=== PATIENT | female | born 1990 | race Caucasian/White ===

== ENCOUNTER 2018-12-31 00:26 | Inpatient (IN) ==
[2018-12-31] MEDS ORDERED: LACTATED RINGER'S 1,000 ML IV PRN (00:48)
[2018-12-31] MEDS ORDERED: OXYTOCIN 30 UNITS/500 ML BAG IV PRN ×4 (00:48→08:39)
[2018-12-31 01:22] LABS: Hematocrit (blood only) 31.8 % (37-47); Mean Corpuscular Hemoglobin 31.3 pg (25-34); Mean Corpuscular Volume 90.3 fL (80-100); Mean Platelet Volume 9.4 fL (7.4-10.4); Platelet Count 184 K/uL (130-400); RDW Coefficient of Variation 14.1 % (11.5-14.5); RDW Standard Deviation 46.3 fL (36.4-46.3); Red Blood Count 3.52 M/uL (4.2-5.4); White Blood Count 7.51 K/uL (4.8-10.8)
[2018-12-31 01:23] LABS: Mean Corpuscular Hgb Conc 34.6 g/dL (32-36)
[2018-12-31] MEDS ORDERED: ePHEDrine sulfate 50 MG/ML AMP ONE (01:38)
[2018-12-31] MEDS ORDERED: BUPIVACAINE 0.25% 30 ML VIAL ONE (01:38)
[2018-12-31] MEDS ORDERED: fentaNYL 2MCG/ML ROPIV 1.25MG/ML 100 ML BAG EPI ONE (01:39)
[2018-12-31] MEDS ORDERED: fentaNYL citrate 100 MCG/2 ML VIAL ONE (01:39)
[2018-12-31] MEDS: LACTATED RINGER'S 1,000 ML IV PRN ×2 (02:04→03:01)
[2018-12-31] MEDS ORDERED: DiphenhydrAMINE HCL 50 MG/ML VIAL IV PRN (02:25)
[2018-12-31] MEDS ORDERED: NALOXONE HCL 1 MG in SODIUM CHLORIDE 0.9% 1000ML 1,000 ML IV PRN (02:25)
[2018-12-31] MEDS ORDERED: NALBUPHINE HCL INJ 10 MG/ML AMP IV PRN (02:25)
[2018-12-31] MEDS ORDERED: NALOXONE HCL 0.4 MG/1 ML VIAL/CARP IV PRN (02:25)
[2018-12-31] MEDS ORDERED: ONDANSETRON INJ 2 MG/ML 2 ML VIAL IV PRN (02:25)
[2018-12-31] MEDS ORDERED: fentaNYL 2MCG/ML ROPIV 1.25MG/ML 100 ML BAG EPI PRN (02:25)
[2018-12-31] MEDS ORDERED: ePHEDrine sulfate 50 MG/ML AMP IV PRN (02:25)
--- NOTE | 2018-12-31 02:27 | Anesthesiology Consultation ---
Date of Service December 31, 2018 Assessment & Plan (1) Encounter for pre-operative examination: Chart Review Chart Review: Patient NOT seen in Pre Admission Testing and Acceptable Risk for Labor Epidural Consults Requested none History Height/Weight Height: 5 ft 1 in Weight: 68.492 kg Allergies Allergy/AdvReac Type Severity Reaction Status Date / Time No Known Drug Allergies Allergy Verified 12/23/18 13:54 Medications Home Medications Medication Instructions Recorded Confirmed Last Taken ascorbic acid (vitamin C) 200 cap PO DAILY 11/06/18 12/31/18 12/30/18 21:00 calcium carbonate 200 tab PO DAILY 11/06/18 12/31/18 12/30/18 21:00 vit no.[id number] 1 tab PO DAILY 12/31/18 12/31/18 12/30/18 21:00 [ Vitamin] Active Medications Generic Name Dose Route Start Last Admin Trade Name Freq PRN Reason Stop Dose Admin Lactated Ringer's 1,000 mls @ 125 mls/hr 12/31/18 00:55 12/31/18 02:04 Lr IV 01/02/19 00:54 999 mls/hr .Q8H PRN Administration L&D Protocol Protocol Past Medical History Medical History Varicella Exercise / Class Metabolic Activity II 4-5 Yardwork/Stairs/Walk up hill Past Family History Family History Sister Ovarian cyst Past Surgical History Surgical History S/P wisdom tooth extraction Past Anesthesia History No Hx of Anesthesia Complications and No Family Hx of Anesthesia Complications History of PONV No Hx of PONV and No Hx of Motion Sickness Social History Smoking Status: Never smoker Do You Dip or Chew Tobacco: No Hx Alcohol Use: No Hx Substance Use: No Physical Exam Vital Signs Last Vital Signs Temp 36.9 C 12/31/18 00:35 Pulse 83 12/31/18 02:23 Resp 18 12/31/18 00:35 BP 131/77 12/31/18 00:35 Pulse Ox 99 12/31/18 02:23 Testing Laboratory Results 12/31/18 01:10
--- NOTE | 2018-12-31 07:14 | Labor Progress Brief Note ---
Date of Service December 31, 2018 Subjective Reason For Note: Routine Evaluation Assessment & Plan (1) : 28 yo , GBS negative,A-, laboring - VS: WNL - SVE: 10, 100%, and +3 - baseline rate 140 - no late decelerations present, and no variable decelerations - Category 1 tracing, reassuring. - Continue management. Physical Exam Physical Exam: - VS WNL - 10 cm, 100%, +3 - baseline rate 140 - no late decelerations present and no variable decelerations - Category 1 strip Results & Data Vital Signs (Past 12 Hours) Vital Signs Temp Pulse Resp BP Pulse Ox 12/31/18 07:08 80 100 12/31/18 07:03 82 100 12/31/18 06:58 88 98 12/31/18 06:55 78 103/56 L 12/31/18 06:53 70 99 12/31/18 06:48 76 99 12/31/18 06:43 70 98 12/31/18 06:40 83 113/55 L 12/31/18 06:38 73 97 12/31/18 06:33 76 99 12/31/18 06:28 83 100 12/31/18 06:26 67 20 110/64 12/31/18 06:23 71 100 12/31/18 06:18 69 100 12/31/18 06:13 64 98 12/31/18 06:11 69 107/52 L 12/31/18 06:08 69 96 12/31/18 06:03 65 97 12/31/18 05:58 67 96 12/31/18 05:55 67 16 104/57 L 12/31/18 05:53 67 96 12/31/18 05:48 68 96 12/31/18 05:43 65 96 12/31/18 05:42 68 108/56 L 12/31/18 05:38 68 97 12/31/18 05:33 68 97 12/31/18 05:30 18 12/31/18 05:28 64 98 12/31/18 05:26 65 112/61 12/31/18 05:23 66 97 12/31/18 05:18 71 99 12/31/18 05:13 73 98 12/31/18 05:11 78 117/56 L 12/31/18 05:08 75 98 12/31/18 05:03 71 100 12/31/18 05:00 36.8 C 18 12/31/18 04:58 80 98 12/31/18 04:55 71 111/59 L 12/31/18 04:53 73 98 12/31/18 04:48 76 98 12/31/18 04:43 68 99 12/31/18 04:42 72 118/54 L 12/31/18 04:38 77 99 12/31/18 04:33 79 100 12/31/18 04:30 18 12/31/18 04:28 72 97 12/31/18 04:25 68 110/55 L 12/31/18 04:23 70 96 12/31/18 04:18 72 96 12/31/18 04:13 72 95 12/31/18 04:11 67 113/56 L 12/31/18 04:08 70 96 12/31/18 04:03 77 96 12/31/18 04:00 16 12/31/18 03:58 89 97 12/31/18 03:55 74 111/55 L 12/31/18 03:53 69 97 12/31/18 03:48 73 97 12/31/18 03:43 79 97 12/31/18 03:42 67 113/59 L 12/31/18 03:38 65 98 12/31/18 03:33 85 99 12/31/18 03:30 18 12/31/18 03:28 68 97 12/31/18 03:25 76 109/58 L 12/31/18 03:23 69 98 12/31/18 03:18 83 99 12/31/18 03:13 72 98 12/31/18 03:11 67 115/59 L 12/31/18 03:08 78 99 12/31/18 03:03 76 99 12/31/18 03:00 36.9 C 20 12/31/18 02:58 73 100 12/31/18 02:54 79 108/53 L 12/31/18 02:53 78 98 12/31/18 02:51 78 114/58 L 12/31/18 02:48 81 118/56 L 99 12/31/18 02:45 75 123/58 L 12/31/18 02:43 76 99 12/31/18 02:41 73 120/70 12/31/18 02:38 80 100 12/31/18 02:33 78 100 12/31/18 02:28 67 99 12/31/18 02:26 71 130/81 12/31/18 02:23 83 99 12/31/18 00:35 36.9 C 82 18 131/77 12/31/18 00:34 82 131/77 Resident Activity Tracking Resident Involvement: Resident Care Provided Care Provided: Adult Hospital Medicine
[2018-12-31] MEDS ORDERED: bisacodyL 10 MG SUPP PR PRN (08:39)
[2018-12-31] MEDS ORDERED: DIPHTHERIA/TETANUS/PERTUSSIS 0.5 ML SYR/VIAL IM ONE (08:39)
[2018-12-31] MEDS ORDERED: BENZOCAINE 20% AER SPR 82.5 GM CAN EXT PRN (08:39)
[2018-12-31] MEDS ORDERED: IBUPROFEN 600 MG TAB PO PRN (08:39)
[2018-12-31] MEDS ORDERED: SUPERCREAM 0.870% 15 GM JAR EXT PRN (08:39)
[2018-12-31] MEDS ORDERED: HYDROCORTISONE ACETATE 25 MG SUPP PR PRN (08:39)
[2018-12-31] MEDS ORDERED: MEASLES, MUMPS & RUBELLA VIRUS VIAL SQ ONE (08:39)
[2018-12-31] MEDS ORDERED: ACETAMINOPHEN 325 MG TAB PO PRN (08:39)
--- NOTE | 2018-12-31 08:40 | History & Physical Report ---
Date of Service December 31, 2018 Assessment & Plan (1) Supervision of normal first : 28yo at 38.4 weeks GA. Labor/ SROM 1. Fetus: Cat 1 2. Labor: active labor. will augment if indicated 3. Vitals: WNL 4. GBS negative 5. Rubella nonimmune: MMR PP History of Present Illness Primary Care Provider: [facility] PCP 28yo at 38.4 weeks GA. Patient present for SROM and active labor. Denies VB. Good FM. complicated by late to care, Rh negative, and rubella nonimmune. GBS negative. Allergies Allergy/AdvReac Type Severity Reaction Status Date / Time No Known Drug Allergies Allergy Verified 12/23/18 13:54 Home Medications Home Medications Medication Instructions Recorded Confirmed Type ascorbic acid (vitamin C) 200 cap PO DAILY 11/06/18 12/31/18 History calcium carbonate 200 tab PO DAILY 11/06/18 12/31/18 History vit no.[id number] 1 tab PO DAILY 12/31/18 12/31/18 History [ Vitamin] Patient History Medical History Varicella Surgical History S/P wisdom tooth extraction Family History Sister Ovarian cyst Social History Preferred Language: Telugu Communication Ability: Effective Communication Ability Comment: Pt wears glasses but not with her. Sheet Tailer Required: No Beliefs That Will Affect Care: None marital status: marital status details: Andrez Hamilton (24) [phone] Current Living Situation: Spouse Current Living Situation Comment: no pets in the home current occupational status: unemployed Other Information That Helps Us Care for You: No Feels Safe at Home: Yes Safety Concerns: Feels Safe At This Time Smoking Status: Never smoker Do You Dip or Chew Tobacco: No ; Second Hand Exposure: No ; Hx Alcohol Use: No Hx Substance Use: No Childhood Exposure to Second-Hand Smoke: No Physical Exam Constitutional: WD/WN, vitals as above Gastrointestinal (Abdomen): normal bowel sounds, soft, nontender, no hepatosplenomegaly Genitourinary: OB Exam Abdomen: + vertex Manual OB Exam: + cervical dilation 6 cm, + cervical effacement 90%, + station -1 and + amniotic fluid meconium OB Exam Monitor Tracing: + external FHT monitor used, + external uterine monitor used, + category I and + normal FHT variability; no late decelerations present and no variable decelerations Results & Data Vital Signs (Past 12 Hours) Vital Signs Pulse BP 12/31/18 00:34 82 131/77
--- NOTE | 2018-12-31 09:18 | Delivery Summary ---
DATE OF OPERATION: 12/31/2018 PROCEDURE: Normal spontaneous vaginal delivery with manual extraction of placenta and second-degree laceration repair. SURGEON: Alfonso Ray MD PREOPERATIVE DIAGNOSES: 1. Single intrauterine at 38+ weeks gestational age. 2. Active labor. 3. Spontaneous rupture of membranes. 4. Late care. 5. Rubella nonimmune. 6. Rh negative. 7. Meconium stained fluid. POSTOPERATIVE DIAGNOSES: 1. Single intrauterine at 38+ weeks gestational age. 2. Active labor. 3. Spontaneous rupture of membranes. 4. Late care. 5. Rubella nonimmune. 6. Rh negative. 7. Meconium stained fluid. 8. Status post delivery. ESTIMATED BLOOD LOSS: 400 mL. DRAINS: Hernandez with 600 mL after delivery of placenta. FLUIDS: Continuous lactated ringer. COMPLICATIONS: None. INDICATIONS: Ms. Hamilton is a 28-year-old G1, P0, admitted at 38 weeks 4 days gestational age in active labor with spontaneous rupture of membranes. The patient progressed in labor without further augmentation, received an epidural for anesthesia, progressed to complete +3 station, at which time she felt the urge to push. DESCRIPTION OF PROCEDURE: The patient progressed to 10 cm dilated, 100% effaced, +3 station, pushed over intact perineum with epidural anesthesia and delivered a viable female with weight pending and Apgars of 8 and 9 at 1 and 5 minutes respectively. Head of delivered in LANCE position, restituted to right transverse. No nuchal cord was noted. Body and shoulders quickly followed. was noted to be vigorous soon after delivery and a 1-minute delayed cord clamping was initiated. The cord was then double clamped and cut and remained on maternal abdomen. Cord blood was obtained. Attention was then turned to deliver the placenta which resulted in a cord avulsion with manual extraction. The membranes appeared to be complete with 3-vessel cord. On inspection of perineum, vagina, and cervix, there was noted to be second degree perineal laceration which was repaired with 3-0 Vicryl on a continuous running stitch. Needle, sponge and instrument counts were correct at the completion of the case with mother and were stable in the immediate post-delivery. I attest to the content of the Intraoperative Record and any orders documented therein. Any exception s are noted below.
--- NOTE | 2018-12-31 09:26 | Anesthesia Procedure Note ---
Date of Service December 31, 2018 Anesthesia Post Epidural Note Vital Signs Vital Signs: Temp Pulse Resp BP Pulse Ox 36.8 C 75 18 117/59 L 96 12/31/18 07:00 12/31/18 09:15 12/31/18 07:00 12/31/18 09:15 12/31/18 08:04 Pain Intensity Bilateral Abdomen: Pain Intensity: 0 Notes Mental Status: alert / awake / arousable Nausea / Vomiting: adequately controlled Pain: adequately controlled Airway Patency, RR, SpO2: stable & adequate BP & HR: stable & adequate Hydration State: stable & adequate Neuraxial Anesthesia: was administered and sensory block is resolving Anesthetic Complications: no major complications apparent Epidural: Removed without complications and With tip intact
[2018-12-31] MEDS: DOCUSATE SODIUM 100 MG CAP PO SCH (20:39)
--- NOTE | 2019-01-01 06:07 | Obstetrical Progress Note ---
Date of Service January 01, 2019 Assessment & Plan (1) : 28 yo s/p VD @ 38w4d -PPD#1 - GBS negative, Blood Type A- - Feels well today. Eating well, voiding well, ambulating well. - Pain well controlled. - Routine post care - After discharge will have [address] Ray. Supervising Physician Co-Signing Physician Notes Resident Physician Supervision Note: I was present with Dr. Hutchison during the history and exam. I discussed the case with the resident and agree with the findings and plan as documented in the note. Any exceptions or clarifications are listed here: PPD#1 doing well. Desires discharge. Discussed DC instructions. Documented By: Lisa Brice, DO Subjective Doing well, states her pain is well controlled. Bleeding is less than a heavy period. She asked if she could be discharged today since she is self pay. Review of Systems Review of Systems: Denies fever, chills, sweats Denies shortness of breath, difficulty breathing, chest pain, palpitations, chest pressure. Denies breast pain. Denies dysuria. Denies headache. Physical Exam Physical Exam: General: Alert, oriented. No acute distress. Cardiac: Regular rate and rhythm, no murmurs/rubs/gallops. Respiratory: Clear to auscultation anterior and posteriorly, no wheezes/rales/rhonchi. No increased work of breathing. Symmetrical chest rise. No respiratory distress. Abdomen: Soft, nontender, nondistended. Bowel sounds present. Uterus: Uterine fundus firm, palpable at the umbilicus. Lower Extremities: No lower extremity edema or swelling. No deep calf pain. Darshan's negative bilaterally. Results & Data Vital Signs (Past 12 Hours) Vital Signs Temp Pulse Resp BP 01/01/19 04:10 77 18 112/68 12/31/18 23:40 37.2 C 89 18 121/73 12/31/18 20:30 36.7 C 82 20 122/69 PG Care Time/CCT Total # of Minutes Spent Total Time Spent with Patient: Total time spent is greater than 50% in coordination of care (as documented) at patient's floor/unit and/or counseling patient: Resident Activity Tracking Resident Involvement: Resident Care Provided Care Provided: Adult [facility] Medicine
[2019-01-01 06:22] LABS: Hematocrit (blood only) 33.4 % (37-47); Hemoglobin 11.4 g/dL (12.0-16.0); Mean Corpuscular Hemoglobin 31.3 pg (25-34); Mean Corpuscular Hgb Conc 34.1 g/dL (32-36); Mean Corpuscular Volume 91.8 fL (80-100); Mean Platelet Volume 9.5 fL (7.4-10.4); Platelet Count 189 K/uL (130-400); RDW Coefficient of Variation 14.4 % (11.5-14.5); RDW Standard Deviation 48.9 fL (36.4-46.3); Red Blood Count 3.64 M/uL (4.2-5.4); White Blood Count 10.88 K/uL (4.8-10.8)
[2019-01-01] MEDS ORDERED: PRENATAL VITAMIN 1 TAB PO SCH (08:00)
[2019-01-01] MEDS: DOCUSATE SODIUM 100 MG CAP PO SCH (08:45)
[2019-01-01] MEDS ORDERED: bisacodyL 5 MG TABEC PO SCH (20:00)
== END 2019-01-01 12:02 | disposition home or self-care (01) | DRG 807 ==
LOC: OPB 00:26 → 4S1 00:31 → 4S2 11:02

== ENCOUNTER 2022-06-17 18:19 | Inpatient (IN) ==
[2022-06-17] MEDS ORDERED: OXYTOCIN 30 UNITS/500 ML BAG IV PRN ×2 (19:14)
[2022-06-17] MEDS ORDERED: PENICILLIN G POTASSIUM 6 MU in DEXTROSE 5% 250 ML IV STA (19:14)
[2022-06-17] MEDS ORDERED: LIDOCAINE 1% LOCAL 20 ML VIAL INFIL PRN (19:14)
--- NOTE | 2022-06-17 19:19 | History & Physical Report ---
Date of Service June 17, 2022 Assessment & Plan (1) Carrier of group B Streptococcus: Plan: PCN (2) PROM (premature rupture of membranes): Plan: Pitocin augmentation recommended and accepted (3) Need for MMR vaccine: Plan: Will offer History of Present Illness Primary Care Provider: NO PCP 32yo @ 36w3d with ROM at home this evening for clear fluid, followed by onset of contractions that are mild and Q8min currently. No VB, good FM. Preg c/b GBS+ and RH neg. Prior in 2019 Allergies Allergy/AdvReac Type Severity Reaction Status Date / Time No Known Drug Allergies Allergy Verified 06/12/22 14:05 Home Medications Medication Instructions Recorded Confirmed Type calcium 100 mg capsule mg PO 06/17/22 History ferrous sulfate 325 mg (65 mg mg 06/17/22 History iron) tablet (Iron (ferrous sulfate)) omega-3 fatty acids PO 06/17/22 History vitamin B12 0.5 mg-folic acid 1 mg 1 tab PO DAILY 06/17/22 06/17/22 History tablet Patient History Medical History (Updated 06/17/22 @ 19:18 by Esmer Overton MD) Varicella Surgical History S/P wisdom tooth extraction Family History Sister Ovarian cyst Social History (Updated 03/07/22 @ 15:39 by Annabelle Woods) Smoking Status: Never smoker Second Hand Exposure: No; Hx Alcohol Use: No Hx Substance Use: No Preferred Language: Estonian Communication Ability: Effective Communication Ability Comment: Pt wears glasses but not with her. Notcher Required: No Beliefs That Will Affect Care: None marital status: marital status details: Andrez Hamilton (27) [phone] Current Living Situation: Spouse Current Living Situation Comment: lives with spouse, and daughter current occupational status: employed current occupation: Cleaning job Feels Safe at Home: Yes Childhood Exposure to Second-Hand Smoke: No Assistive Devices: None Physical Exam Genitourinary: Copious clear fluid, grossly ruptured. FHT Cat 1 [place] Q8-9 Cvx 3/-1 Vtx presentation Results & Data Vital Signs (Past 12 Hours) Vital Signs Pulse BP 06/17/22 18:35 85 118/60 Coding Level of Care Code None Diagnoses Carrier of group B Streptococcus Z22.330 PROM (premature rupture of membranes) O42.90 Need for MMR vaccine Z23
--- NOTE | 2022-06-17 19:22 | Anesthesiology Consultation ---
Date of Service June 17, 2022 Assessment & Plan Chart Review Chart Review: Patient NOT seen in Pre Admission Testing and Acceptable Risk for Labor Epidural Consults Requested none History Allergies Allergy/AdvReac Type Severity Reaction Status Date / Time No Known Drug Allergies Allergy Verified 06/12/22 14:05 Medications Home Medications Medication Instructions Recorded Confirmed Last Taken calcium 100 mg capsule mg PO 06/17/22 06/17/22 ferrous sulfate 325 mg (65 mg mg 06/17/22 06/17/22 iron) tablet (Iron (ferrous sulfate)) omega-3 fatty acids PO 06/17/22 06/17/22 vitamin B12 0.5 mg-folic acid 1 mg 1 tab PO DAILY 06/17/22 06/17/22 06/17/22 tablet Past Medical History Medical History Varicella Past Family History Family History Sister Ovarian cyst Past Surgical History Surgical History S/P wisdom tooth extraction Social History Smoking Status: Never smoker Hx Alcohol Use: No Hx Substance Use: No Physical Exam Vital Signs Last Vital Signs Pulse 85 06/17/22 18:35 BP 118/60 06/17/22 18:35
[2022-06-17 19:45] LABS: Hematocrit (blood only) 31.8 % (37.0-47.0); Hemoglobin 10.9 g/dl (12.0-16.0); Mean Corpuscular Hemoglobin 29.5 pg (25.0-34.0); Mean Corpuscular Hgb Conc 34.3 g/dL (32.0-36.0); Mean Corpuscular Volume 86.2 fL (80.0-100.0); Mean Platelet Volume 9.1 fL (9.4-12.4); Platelet Count 250 K/uL (130-400); RDW Coefficient of Variation 13.2 % (11.5-14.5); RDW Standard Deviation 41.2 fL (36.4-46.3); Red Blood Count 3.69 M/uL (4.20-5.40); White Blood Count 10.55 K/ul (4.8-10.8)
[2022-06-17] MEDS: LACTATED RINGER'S 1,000 ML IV PRN ×2 (20:08→21:50)
[2022-06-17] MEDS ORDERED: ePHEDrine sulfate 50 MG/ML AMP ONE (21:03)
[2022-06-17] MEDS ORDERED: LIDOCAINE 2%/EPINEPHRINE 1:200,000 20 ML PF ONE (21:04)
[2022-06-17] MEDS ORDERED: SODIUM CHLORIDE 0.9% PF INJ 10 ML VIAL ONE (21:04)
[2022-06-17] MEDS ORDERED: BUPIVACAINE 0.25% PF 30 ML VIAL ONE (21:04)
[2022-06-17] MEDS ORDERED: fentaNYL 2MCG/ML ROPIVACAINE 1.25MG/ML 100 ML BAG EPI ONE (21:04)
[2022-06-17] MEDS ORDERED: fentaNYL citrate PF 100 MCG/2 ML VIAL ONE (21:04)
[2022-06-17] MEDS ORDERED: diphenhydrAMINE 50 MG/ML VIAL IV PRN (21:34)
[2022-06-17] MEDS ORDERED: NALOXONE HCL 1 MG in SODIUM CHLORIDE 0.9% 1000ML 1,000 ML IV PRN (21:34)
[2022-06-17] MEDS ORDERED: NALOXONE HCL 0.4 MG/1 ML VIAL/CARP IV PRN (21:34)
[2022-06-17] MEDS ORDERED: ePHEDrine sulfate 50 MG/ML AMP IV PRN (21:34)
[2022-06-17] MEDS ORDERED: fentaNYL 2MCG/ML ROPIVACAINE 1.25MG/ML 100 ML BAG EPI PRN (21:34)
[2022-06-17] MEDS ORDERED: NALBUPHINE HCL INJ 10 MG/ML AMP IV PRN (21:34)
[2022-06-17] MEDS ORDERED: PENICILLIN G POTASSIUM 3 MU in DEXTROSE 5% 100 ML IV PRN (22:14)
--- NOTE | 2022-06-17 22:39 | Delivery Summary ---
Vaginal Delivery Summary Date of Service June 17, 2022 Vaginal Delivery Summary DIAGNOSES: 1. [place]ley intrauterine at 36w3d gestation. 2. PROM and Augmentation of Labor. 3. Group B Streptococcus Pos, treated with PCN. PROCEDURE: Spontaneous vaginal delivery without laceration. SURGEON: Esmer Overton MD. ASBESTOS REMOVAL WORKER: None. ESTIMATED BLOOD LOSS: 250 mL. COMPLICATIONS: None. PLACENTA: Spontaneous and intact with a 3-vessel cord. DISPOSITION: Stable to labor and delivery. DESCRIPTION: The patient pushed well and brought the head to in DOA position. The infant's head was allowed to deliver with contraction force and no further active pushing, with the perineum protected during this time. There was no nuchal cord. The left shoulder was anterior. The shoulders and body delivered without any difficulty, and the infant was placed on the maternal abdomen. It was vigorous and moving all extremities, and making respiratory efforts. The cord was doubly clamped by the MD and then cut. The placenta delivered spontaneously and was noted to be intact and with a 3VC. The cervix, vagina and perineum were examined and were found to be without defect requiring repair. The fundus was firm and lochia minimal immediately after delivery. [facility] Vaginal Delivery Charge Vaginal Delivery Codes: 23455 global code for the antepartum, delivery, and post-
[2022-06-18] MEDS ORDERED: oxyCODONE/ACETAMINOPHEN 5mg/325mg TAB PO PRN (00:28)
[2022-06-18] MEDS ORDERED: DIPHTHERIA/TETANUS/PERTUSSIS 0.5mL SYR/VIAL (Age 7+yrs) IM ONE (00:28)
[2022-06-18] MEDS ORDERED: HYDROCORTISONE ACETATE 25 MG SUPP PR PRN (00:28)
[2022-06-18] MEDS ORDERED: BENZOCAINE 20% AER SPR 82.5 GM CAN EXT PRN (00:28)
[2022-06-18] MEDS ORDERED: ACETAMINOPHEN 325 MG TAB PO PRN (00:28)
[2022-06-18] MEDS ORDERED: IBUPROFEN 600 MG TAB PO PRN (00:28)
--- NOTE | 2022-06-18 03:49 | Anesthesia Procedure Note ---
Date of Service June 18, 2022 Anesthesia Post Epidural Note Vital Signs Vital Signs: Temp Pulse Resp BP Pulse Ox O2 Del Method 98.4 F 90 18 120/68 98 Room Air 06/18/22 00:57 06/18/22 00:57 06/18/22 00:57 06/18/22 00:57 06/18/22 00:57 06/18/22 01:25 Pain Intensity Lower Back: Pain Intensity: 3 Notes Mental Status: alert / awake / arousable and participated in evaluation Nausea / Vomiting: adequately controlled Pain: adequately controlled Airway Patency, RR, SpO2: stable & adequate BP & HR: stable & adequate Hydration State: stable & adequate Neuraxial Anesthesia: was administered and sensory block is resolving Anesthetic Complications: no major complications apparent and Pt Satisfied with anesthetic care Epidural: Removed without complications and With tip intact
--- NOTE | 2022-06-18 05:31 | Obstetrical Progress Note ---
Date of Service <Lacey Carlito Saunders DO - Last Filed: 06/18/22 06:07> June 18, 2022 Assessment & Plan <Lacey SNathanael Saunders DO - Last Filed: 06/18/22 06:07> (1) Status post vaginal delivery: Feels well today. Eating well, voiding well, ambulating well. - Routine care -- OOB, ambulation, diet progression as tolerated - After discharge will have 6 week post f/u - RH Negative; [place] candidate (2) Need for MMR vaccine: - Rubella Non-Immune; offer MMR <Esmer Overton MD - Last Filed: 06/18/22 06:51> (1) Status post vaginal delivery: (2) Need for MMR vaccine: Subjective <Lacey S. DO Chip - Last Filed: 06/18/22 06:07> Demond is a 32 y/o female who is now PPD # 1 following vaginal delivery at 36 3/7 weeks. Reports feeling well overall this morning. Mild abdominal cramping, pain well managed on analgesics. Voiding. Tolerating meals overnight and able to ambulate some. Is passing gas, no bowel movements. Some persistent lochia with some improvement this morning. Breast feeding. Review of Systems Denies fever, chills, sweats Denies shortness of breath, difficulty breathing, chest pain, palpitations, chest pressure. Denies breast pain. Denies dysuria. Denies headache or changes in vision. Physical Exam <Lacey BetinaNathanael Saunders DO - Last Filed: 06/18/22 06:07> General: Alert, oriented. No acute distress. Cardiac: Regular rate and rhythm, no murmurs/rubs/gallops. Respiratory: Clear to auscultation bilaterally a/p, no wheezes/rales/rhonchi. No increased work of breathing. Symmetrical chest rise. No respiratory distress. Abdomen: Soft, nontender, nondistended. Uterus: Uterine fundus firm, palpable 1 cm below umbilicus. Lower Extremities: No lower extremity edema or swelling. No deep calf pain. Results & Data <Lacey Saunders DO - Last Filed: 06/18/22 06:07> Vital Signs (Past 12 Hours) Vital Signs Temp Pulse Pulse Resp BP BP Pulse Ox 06/18/22 04:30 36.7 C 82 18 116/77 99 06/18/22 01:25 06/18/22 00:57 36.9 C 90 18 120/68 98 06/17/22 19:31 36.8 C 18 06/18/22 00:29 83 118/60 06/18/22 00:14 92 H 117/55 L 06/17/22 23:59 88 06/17/22 23:59 122/58 L 06/17/22 23:43 85 06/17/22 23:43 120/56 L 06/17/22 23:29 83 06/17/22 23:29 123/57 L 06/17/22 23:13 86 06/17/22 23:13 128/61 06/17/22 22:59 89 06/17/22 22:59 127/64 06/17/22 22:43 87 06/17/22 22:43 128/57 L 06/17/22 22:40 98 06/17/22 22:40 90 06/17/22 22:35 100 06/17/22 22:35 87 06/17/22 22:32 144 H 06/17/22 22:32 90/50 L 06/17/22 22:30 99 06/17/22 22:30 86 06/17/22 22:29 87 06/17/22 22:29 137/56 L 06/17/22 22:25 100 06/17/22 22:25 97 H 06/17/22 22:26 93 H 06/17/22 22:26 95/56 L 06/17/22 22:23 83 06/17/22 22:23 117/57 L 06/17/22 22:20 100 06/17/22 22:20 89 06/17/22 22:19 88 06/17/22 22:19 111/58 L 06/17/22 22:16 83 06/17/22 22:16 109/60 06/17/22 22:15 98 06/17/22 22:15 72 06/17/22 22:14 83 06/17/22 22:14 114/75 06/17/22 22:10 98 06/17/22 22:10 81 06/17/22 22:11 78 06/17/22 22:11 97/55 L 06/17/22 22:07 74 06/17/22 22:07 120/56 L 06/17/22 22:05 97 06/17/22 22:05 71 06/17/22 22:04 77 06/17/22 22:04 113/56 L 06/17/22 22:00 99 06/17/22 22:00 76 06/17/22 21:55 98 06/17/22 21:55 90 06/17/22 21:42 99 06/17/22 21:42 89 06/17/22 21:37 100 06/17/22 21:37 83 06/17/22 21:32 100 06/17/22 21:32 80 06/17/22 21:27 98 06/17/22 21:27 85 06/17/22 21:22 97 06/17/22 21:22 83 06/17/22 21:21 79 06/17/22 21:21 123/69 06/17/22 20:30 18 06/17/22 20:30 36.6 C 18 06/17/22 21:17 100 06/17/22 21:17 76 06/17/22 21:12 98 06/17/22 21:12 87 06/17/22 21:07 99 06/17/22 21:07 79 06/17/22 21:02 99 06/17/22 21:02 84 06/17/22 20:57 98 06/17/22 20:57 82 06/17/22 20:20 86 06/17/22 20:20 115/60 06/17/22 19:32 76 06/17/22 19:32 114/66 06/17/22 18:35 85 118/60 O2 Del Method 06/18/22 04:30 Room Air 06/18/22 01:25 Room Air 06/18/22 00:57 Room Air 06/17/22 19:31 06/18/22 00:29 06/18/22 00:14 06/17/22 23:59 06/17/22 23:59 06/17/22 23:43 06/17/22 23:43 06/17/22 23:29 06/17/22 23:29 06/17/22 23:13 06/17/22 23:13 06/17/22 22:59 06/17/22 22:59 06/17/22 22:43 06/17/22 22:43 06/17/22 22:40 06/17/22 22:40 06/17/22 22:35 06/17/22 22:35 06/17/22 22:32 06/17/22 22:32 06/17/22 22:30 06/17/22 22:30 06/17/22 22:29 06/17/22 22:29 06/17/22 22:25 06/17/22 22:25 06/17/22 22:26 06/17/22 22:26 06/17/22 22:23 06/17/22 22:23 06/17/22 22:20 06/17/22 22:20 06/17/22 22:19 06/17/22 22:19 06/17/22 22:16 06/17/22 22:16 06/17/22 22:15 06/17/22 22:15 06/17/22 22:14 06/17/22 22:14 06/17/22 22:10 06/17/22 22:10 06/17/22 22:11 06/17/22 22:11 06/17/22 22:07 06/17/22 22:07 06/17/22 22:05 06/17/22 22:05 06/17/22 22:04 06/17/22 22:04 06/17/22 22:00 06/17/22 22:00 06/17/22 21:55 06/17/22 21:55 06/17/22 21:42 06/17/22 21:42 06/17/22 21:37 06/17/22 21:37 06/17/22 21:32 06/17/22 21:32 06/17/22 21:27 06/17/22 21:27 06/17/22 21:22 06/17/22 21:22 06/17/22 21:21 06/17/22 21:21 06/17/22 20:30 06/17/22 20:30 06/17/22 21:17 06/17/22 21:17 06/17/22 21:12 06/17/22 21:12 06/17/22 21:07 06/17/22 21:07 06/17/22 21:02 06/17/22 21:02 06/17/22 20:57 06/17/22 20:57 06/17/22 20:20 06/17/22 20:20 06/17/22 19:32 06/17/22 19:32 06/17/22 18:35 <Esmer Overton MD - Last Filed: 06/18/22 06:51> Co-Signing Physician Notes Resident Physician Supervision Note: I interviewed and examined the patient. Discussed with Dr. Saunders and agree with findings and plan as documented in the note. Any exceptions or clarifications are listed here: [ ] Documented By: Esmer Overton MD, FACOG Resident Activity Tracking <Lacey Saunders DO - Last Filed: 06/18/22 06:07> Resident Involvement: Resident Care Provided Care Provided: OB Delivery (Post )
[2022-06-18 06:23] LABS: Hematocrit (blood only) 31.2 % (37.0-47.0); Hemoglobin 10.5 g/dl (12.0-16.0); Mean Corpuscular Hemoglobin 29.2 pg (25.0-34.0); Mean Corpuscular Hgb Conc 33.7 g/dL (32.0-36.0); Mean Corpuscular Volume 86.9 fL (80.0-100.0); Mean Platelet Volume 9.4 fL (9.4-12.4); Platelet Count 216 K/uL (130-400); RDW Coefficient of Variation 13.2 % (11.5-14.5); RDW Standard Deviation 41.5 fL (36.4-46.3); Red Blood Count 3.59 M/uL (4.20-5.40)
[2022-06-18] MEDS: PRENATAL VITAMIN 1 TAB PO SCH (13:21)
[2022-06-18] MEDS: DOCUSATE SODIUM 100 MG CAP PO SCH ×2 (13:21→22:22)
--- NOTE | 2022-06-19 05:55 | Obstetrical Progress Note ---
Date of Service <Lacey Saunders DO - Last Filed: 06/19/22 06:49> June 19, 2022 Assessment & Plan <Lacey Saunders DO - Last Filed: 06/19/22 06:49> (1) Status post vaginal delivery: Feels well today. Eating well, voiding well, ambulating well. - Routine care -- OOB, ambulation, diet progression as tolerated - After discharge will have 6 week post f/u (2) Need for MMR vaccine: - Rubella Non-Immune; offer MMR <Yoli Vanegas MD, FACOG - Last Filed: 06/19/22 07:36> (1) Status post vaginal delivery: (2) Need for MMR vaccine: Subjective <Lacey Saunders DO - Last Filed: 06/19/22 06:49> Demond is a 32 y/o female who is now PPD # 2 following vaginal delivery at 36 3/7 weeks. Reports feeling well overall this morning. Mild abdominal cramping, pain well managed on analgesics. Voiding. Tolerating meals overnight and able to ambulate some. Some persistent lochia with some improvement this morning. Breast feeding. Review of Systems Denies fever, chills, sweats Denies shortness of breath, difficulty breathing, chest pain, palpitations, chest pressure. Denies breast pain. Denies dysuria. Denies headache or changes in vision. Physical Exam <Lacey Saunders DO - Last Filed: 06/19/22 06:49> General: Alert, oriented. No acute distress. Cardiac: Regular rate and rhythm, no murmurs/rubs/gallops. Respiratory: Clear to auscultation bilaterally a/p, no wheezes/rales/rhonchi. No increased work of breathing. Symmetrical chest rise. No respiratory distress. Abdomen: Soft, nontender, nondistended. Uterus: Uterine fundus firm, palpable 3 cm below umbilicus. Lower Extremities: No lower extremity edema or swelling. No deep calf pain. Results & Data <Lacey Saunders DO - Last Filed: 06/19/22 06:49> Vital Signs (Past 12 Hours) Vital Signs Temp Pulse Resp BP Pulse Ox O2 Del Method 06/18/22 23:00 36.9 C 66 16 124/65 98 Room Air 06/18/22 21:00 36.9 C 74 18 122/72 98 Room Air <Yoli Vanegas MD, FACOG - Last Filed: 06/19/22 07:36> Co-Signing Physician Notes Resident Physician Supervision Note: I was present with Dr. Saunders during the history and exam. I discussed the case with the resident and agree with the findings and plan as documented in the note. Any exceptions or clarifications are listed here: [None] Documented By: Yoli Vanegas MD, FACOG Resident Activity Tracking <Lacey Saunders DO - Last Filed: 06/19/22 06:49> Resident Involvement: Resident Care Provided Care Provided: OB Delivery (post )
[2022-06-19 06:37] LABS: Hematocrit (blood only) 32.8 % (37.0-47.0); Hemoglobin 10.8 g/dl (12.0-16.0)
[2022-06-19] MEDS: PRENATAL VITAMIN 1 TAB PO SCH (10:25)
[2022-06-19] MEDS: DOCUSATE SODIUM 100 MG CAP PO SCH (10:25)
== END 2022-06-19 18:15 | disposition home or self-care (01) | DRG 805 ==
LOC: OPB 18:19 → 4S1 18:22 → 4E2 06-18 01:15